=== PATIENT | female | born 1975 | race Caucasian/White ===

== ENCOUNTER 2016-09-16 06:19 | Emergency (ER) | payer OTHER ==
[~2016-09-16] VITALS: Ht 170.2 cm; Wt 63.0 kg
[~2016-09-16 06:19] MED LIST: ALPRAZOLAM0.25 M2 PO; AMBIEN10 MG PO; ATENOLOL50 MG PO; AZO CRANBERRY1 EACH PO; BACLOFEN10 MG PO; CARISOPRODOL350 MG PO; CATAPRES0.2 MG PO; CIPRO500 MG PO; CLINDAMYCIN HC150 MG PO; GABAPENTIN300 MG PO; HYDROCODONE; KLONOPIN2 MG PO; MELOXICAM15 MG PO; MOTRIN IB200 MG PO; MOTRIN400 MG PO; MOTRIN600 MG PO; NOHOMEMEDS; NORCO 5/3251 TABLET PO; PREDNISONE10 MG PO; REMERON30 MG PO; SEROQUEL300 MG PO; SOMA350 M1 PO; THERMACARE HEA1 EACH TP; VALIUM; ZOCOR20 MG PO; ZOFRAN ODT4 MG PO
[2016-09-16 06:42] LABS: HEMATOCRIT 41.9 % (36.0-46.0); MCH 29.7 PG (29.0-34.0); MCHC 33.4 G/DL (30.0-36.0); MCV 88.8 FL (83-99); MEAN PLAT.VOLUME 10.6 uM^3 (9.5-12.4); PLATELET COUNT 209 K/uL (156-360); RBC DIS.WIDTH-CV 14.5 % (11.8-14.6); RBC DIS.WIDTH-SD 47.1 % (39-53); RED BLOOD COUNT 4.72 M/uL (3.80-5.20); WHITE BLOOD COUNT 12.4 K/uL (4.1-10.2)
[2016-09-16 06:51] LABS: CHLORIDE 110 mEq/L (99-109); POTASSIUM 3.1 mEq/L (3.7-5.4); SODIUM 142 mEq/L (136-147)
[2016-09-16 06:52] LABS: GLUCOSE 112 mg/dL (70-99)
[2016-09-16 06:54] LABS: ANION GAP 13 MEQ/L (2-14)
[2016-09-16 06:56] LABS: GFR ESTIMATE (CALCULATED) > 59 mL/min/; SERUM ETHYL ALCOHOL < 10 mg/dL
[2016-09-16 06:57] LABS: UREA NITROGEN (BUN) 15 mg/dL (9-23)
[2016-09-16 07:03] LABS: TROP-I INTERPRETATION NEGATIVE; TROPONIN-I < 0.01 ng/mL (0.0-0.30)
[2016-09-16 07:12] LABS: POINT-OF-CARE METER ID UU13113702
[2016-09-16 07:31] LABS: ADD MIUA? YES; BILIRUBIN NEGATIVE; BLOOD MODERATE; COLOR YELLOW ((YELLOW)); GLUCOSE (STRIP) NEGATIVE; KETONES 20; LEUKOCYTES NEGATIVE; NITRITE NEGATIVE; PROTEIN (STRIP) 100; SPECIFIC GRAVITY 1.017 (1.000-1.030); UROBILINOGEN 0.2 MG/DL (0.2-1.0)
[2016-09-16 07:41] LABS: ADD MEDTOX COMMENT Y; AMPHETAMINE NEGATIVE (500 ng/mL); BARBITURATES NEGATIVE (200 ng/mL); BENZODIAZEPINES PRESUMPTIVE POSITIVE (150 ng/mL); COCAINE NEGATIVE (150 ng/mL); INTERNAL CONTROLS VALID? YES; METHADONE NEGATIVE (200 ng/mL); METHAMPHETAMINE NEGATIVE (500 ng/mL); OPIATES (MORPHINE) PRESUMPTIVE POSITIVE (100 ng/mL); OXYCODONE NEGATIVE (100 ng/mL); PHENCYCLIDINE NEGATIVE (25 ng/mL); PROPOXYPHENE NEGATIVE (300 ng/mL); THC CANNABINOIDS NEGATIVE (50 ng/mL); TRICYCLIC ANTIDEPRESSANTS NEGATIVE (300 ng/mL)
[2016-09-16 07:48] LABS: BACTERIA NONE SEEN /HPF; EPITHELIAL CELLS RARE /HPF; MUCUS 2+ /LPF; RED BLOOD CELLS 30-40 /HPF (0-5); UCUL ADDED? NO; WHITE BLOOD CELLS 15-20 /HPF (0-5)
[2016-09-16 09:23] LABS: BENZODIAZEPINES, URINE SCREEN POSITIVE (200 ng/mL)
[2016-09-16 11:50] VITALS: BP 149/76
== END 2016-09-16 11:52 | disposition home or self-care (01) ==
LOC: EME 06:19
PROVIDERS: Emergency Medicine
DX: F19.10 Other psychoactive substance abuse, uncomplicated (principal); F11.10 Opioid abuse, uncomplicated; F17.200 Nicotine dependence, unspecified, uncomplicated; Z87.442 Personal history of urinary calculi; Z88.0 Allergy status to penicillin
CPT/HCPCS: 70450; 80048; 81003; 82948; 83605; 84484; 84999; 85027; 93005; 99281; 99284; G0480; J7030